=== PATIENT | female | born 1985 | race Caucasian/White ===

== ENCOUNTER 2018-10-27 11:16 | Observation (INO) ==
[2018-10-27] MEDS ORDERED: Chlorhexidine Gluconate 2% 1 Pack (2 Cloths) TOPICAL ONE (12:02)
[2018-10-27] MEDS ORDERED: Metoprolol Tartrate 25 MG Tablet PO ONE (12:02)
[2018-10-27] MEDS ORDERED: Sodium Chlor 0.9% Inj 500 ML IV.SIG ONE (13:00)
[2018-10-27] MEDS ORDERED: Bupivacaine/Epinephrine Inj 0.25% 50 ML Vial ONE (13:02)
[2018-10-27] MEDS ORDERED: HYDROmorphone PF Inj 1 MG/ML Ampul IV.PUSH PRN (15:32)
[2018-10-27] MEDS ORDERED: ALPRAZolam 0.5 MG Tablet PO PRN (15:37)
--- NOTE | 2018-10-27 15:42 | P.OP ---
- Preoperative Diagnosis (1) Menorrhagia with regular cycle (2) Dysmenorrhea (3) Dyspareunia due to medical condition in female patient (4) Pelvic pain - Postoperative Diagnosis (1) Dysmenorrhea (2) Dyspareunia due to medical condition in female patient (3) Menorrhagia with regular cycle (4) Pelvic pain Date of procedure: 10/27/18 Procedure: Laparoscopic-assisted vaginal hysterectomy and bilateral salpingectomy Anesthesia: [facility] Surgeon: Leonel Rooney MD Estimated blood loss (mL): 250 Operation and Findings: Counts were correct Findings examination under anesthesia revealed a parous cervix a freely mobile uterus the adnexa were negative for masses the arthroscopic exam revealed a globular slightly enlarged uterus normal fallopian tubes normal ovaries normal anterior cul-de-sac posterior cul-de-sac may have had a couple spots of endometriosis. Procedure in detail Patient was taken to the operating room and identified by name band and verbally. She received a general anesthetic and she was prepped and draped in the usual sterile manner for a laparoscopic hysterectomy. A Allison catheter was inserted. A time out was taken and an exam under anesthesia was carried out with the above findings. A speculum was placed in the vagina and the anterior lip of the cervix was grasped with a single-tooth tenaculum. A Hulka clamp was placed and attention was turned to the umbilical area a small subumbilical incision was made and using a 5 mm trocar the abdomen was entered under direct vision and a pneumoperitoneum was created with 3 L of CO2. Inferior lateral to the umbilicus bilaterally 2 more 5 mm trochar were placed under direct vision. Beginning with the round ligaments they were taken down with a harmonic scalpel. The fimbriated ends of the fallopian tube was then grasped and the mesosalpinx was taken down the entire length of the fallopian tubes. The broad ligament was then taken down with the harmonic scalpel to the level of the internal cervical os. The uterine vessels were skeletonized. The bladder flap was now more fully developed and the bladder was pushed out of harm's way. The uterine vessels were then taken at the level of the internal cervical os with the harmonic scalpel. The cardinal ligament was then taken down with the harmonic scalpel staying very close to the cervix until the vaginal apex was obtained. At this point we went below and put a weighted speculum into the vagina removed the Hulka clamp and make a circumferential incision around the cervix the uterus and tubes were then delivered through the vagina without difficulty. This is where the main blood loss occurred there were several vaginal cuff bleeders. Until this point we had only lost probably 25 or 50 cc of blood. The vaginal cuff was then repaired with 0 Vicryl pop offs is in interrupted fashion with good results. Hemostasis was excellent. A sponge stick was placed in the vagina and we returned to the laparoscopic portion. All pedicles were inspected and were dry the pelvis was cleaned of blood and debris with the suction electronic commerce specialist the laparoscope was then removed under direct vision the pneumoperitoneum was released through the second and third punctures and those trochar were removed. The abdominal incisions were then repaired with 4- 0 Monocryl in a subcuticular manner. Patient tolerated the procedure well and went to the recovery room in satisfactory condition.
[2018-10-27] MEDS ORDERED: *morphine SULFATE 4 MG/ML PERIprocedure ONLY ONE ×3 (15:48→16:12)
[2018-10-27] MEDS ORDERED: fentaNYL Citrate Inj 100 MCG/2 ML Ampul ONE (15:53)
[2018-10-27] MEDS ORDERED: *Meperidine Inj 25 MG/ML Vial PERIprocedural Use ONLY ONE (15:56)
[2018-10-27 19:59] VITALS: RESP 18
[2018-10-27] MEDS: Docusate Sodium 100 MG Capsule PO SCH (20:56)
[2018-10-27] MEDS: Liothyronine 5 MCG Tablet PO SCH (20:56)
[2018-10-27] MEDS ORDERED: Zolpidem Tartrate 5 MG Tablet PO PRN (21:00)
[2018-10-27] MEDS: Ibuprofen 600 MG Tablet PO PRN (22:49)
[2018-10-28 06:00] LABS: Baso % (Auto) 0.1 % (0.0-2.0); Eos % (Auto) 0.1 % (0.0-4.0); Hematocrit 40.1 % (35.0-46.0); Hemoglobin 13.3 gm/dL (11.6-15.3); Lymph # (Auto) 1.1 th/mm3 (1.0-4.8); Lymph % (Auto) 12.6 % (9.0-44.0); Mean Corpuscular HGB Conc 33.3 % (32.0-36.0); Mean Corpuscular Hemoglobin 31.7 pg (27.0-34.0); Mean Corpuscular Volume 95.4 fL (80.0-100.0); Mean Platelet Volume 7.5 fL (7.0-11.0); Mono # (Auto) 0.5 th/mm3 (0.0-0.9); Mono % (Auto) 5.3 % (0.0-8.0); Neut # (Auto) 7.3 th/mm3 (1.8-7.7); Neut % (Auto) 81.9 % (16.0-70.0); Platelet Count 296 th/mm3 (150-450); White Blood Count 8.9 th/mm3 (4.0-11.0)
[2018-10-28 06:39] LABS: Anion Gap 9 meq/L (5-15); Blood Urea Nitrogen 11 mg/dL (7-18); Calcium 8.1 mg/dL (8.5-10.1); Chloride 105 meq/L (98-107); Glomerular Filtration Rate Greater Than 89 mL/min (>89); Glucose,Random 109 mg/dL (74-106); Potassium 4.2 meq/L (3.5-5.1); Sodium 139 meq/L (136-145)
[2018-10-28] MEDS: Ibuprofen 600 MG Tablet PO PRN ×2 (07:40→13:08)
[2018-10-28] MEDS: Liothyronine 5 MCG Tablet PO SCH ×2 (07:44→10:19)
[2018-10-28 07:52] VITALS: O2SAT 95
[2018-10-28] MEDS: Docusate Sodium 100 MG Capsule PO SCH (08:25)
--- NOTE | 2018-10-28 09:08 | P.PNOB ---
Assessment and Plan (1) S/P laparoscopic assisted vaginal hysterectomy (LAVH) Status: Acute Assessment and plan: pt having some pain, just took pain medication shepard catheter to be removed ambulation in room routine post op care dc home later today - Postoperative Procedures Operation Date: 10/27/18 13:30 Actual Procedures Side Surgeon p LAPAROSCOPIC ASSISTED VAGINAL HYSTERECTOMY, BILATERAL SALPINGECTOMY Bilateral Leonel Rooney MD Postoperative day: 1 Postoperative status: doing well Postoperative plan: routine post-op care - Time Spent With Patient Total time spent is greater than 50% in coordination of care (as documented) at patient's floor/unit and/or counseling patient: less than 15 minutes Subjective Subjective: patient is tolerating oral intake Physical Exam Vital signs: Temp Pulse Resp BP Pulse Ox 98.2 F 76 18 107/72 95 10/28/18 07:51 10/28/18 07:51 10/28/18 07:51 10/28/18 07:51 10/28/18 07:51 - Constitutional no acute distress - Routine Respiratory Exam Present: CTA bilaterally - Routine Cardiovascular Exam Present: RRR, S1, S2 - Routine Abdominal Exam Present: soft, normoactive bowel sounds Comments: band-aids to abd CDI - Detailed Neurological Exam: Coma Scale Eye Opening: Spontaneous Verbal Response: Oriented - Urinary Catheter Management Indwelling Urethral Catheter Cath placed during this visit: yes Urethral indwelling: Yes Reason for Continuing: Decision to DC catheter (orders to have it removed/ draining clear yellow urine) Insertion date: 10/27/18 Insertion time: 13:50 Results - Labs CBC & Chem 7: 10/28/18 05:25 10/28/18 05:25 Labs: Laboratory Results - last 24 hr 10/27/18 10/27/18 10/28/18 11:55 11:55 05:25 WBC 8.9 RBC 4.20 Hgb 13.3 Hct 40.1 MCV 95.4 MCH 31.7 MCHC 33.3 RDW 13.0 Plt Count 296 MPV 7.5 Neut % (Auto) 81.9 H Lymph % (Auto) 12.6 Kemper % (Auto) 5.3 Eos % (Auto) 0.1 Baso % (Auto) 0.1 Neut # (Auto) 7.3 Lymph # (Auto) 1.1 Kemper # (Auto) 0.5 Eos # (Auto) 0.0 Baso # (Auto) 0.0 WBC Differential . Differential Comment Auto diff final Sodium Potassium Chloride Carbon Dioxide Anion Gap BUN Creatinine Estimated GFR Random Glucose Calcium Beta HCG, Quant Less than 1 Blood Type O Positive Antibody Screen Negative 10/28/18 05:25 WBC RBC Hgb Hct MCV MCH MCHC RDW Plt Count MPV Neut % (Auto) Lymph % (Auto) Kemper % (Auto) Eos % (Auto) Baso % (Auto) Neut # (Auto) Lymph # (Auto) Kemper # (Auto) Eos # (Auto) Baso # (Auto) WBC Differential Differential Comment Sodium 139 Potassium 4.2 Chloride 105 Carbon Dioxide 25.0 Anion Gap 9 BUN 11 Creatinine 0.73 Estimated GFR Greater than 89 Random Glucose 109 H Calcium 8.1 L Beta HCG, Quant Blood Type Antibody Screen
[2018-10-28 12:12] VITALS: BP 114/69; PULSE 86; TEMP 97.8
== END 2018-10-28 13:44 | disposition home or self-care (01) ==
LOC: HSDC 11:16 → HSDI 11:16 → H1EA 16:40
PROVIDERS: ADMIT Obstetrics & Gynecology; ATTEND Obstetrics & Gynecology
CPT/HCPCS: 80048; 84702; 85025; 86850; 86900; 86901; 88307; 96374; G0378; J0131; J1170; J2175; J2250; J2270; J3010; J7120